=== PATIENT | male | born 1965 | race Two or more races ===

== ENCOUNTER 2023-10-18 14:25 | Inpatient (IN) | payer OTHER ==
[~2023-10-18] VITALS: Ht 170.2 cm; Wt 89.6 kg
[2023-10-18] MEDS ORDERED: AMLO-258 PO (14:33)
[2023-10-18] MEDS ORDERED: ATOR20TA65 PO (14:50)
[2023-10-18] MEDS: ONDANSETRON HCL 4 MG/2 ML VIAL IVP ONE ×3 (14:55→20:32)
[2023-10-18] MEDS: HYDROmorphone HCL 2 MG/ML SYRINGE IVP ONE (14:55)
[2023-10-18] MEDS: SODIUM CHLORIDE 0.9% 1,000 ML IV ONE ×3 (14:56→19:08)
[2023-10-18 15:06] LABS: BASOPHILS % (AUTO) 0.2 % (0.0-2.0); EOSINOPHILS % (AUTO) 0.2 % (1.0-6.0); HEMATOCRIT 43.8 % (41-53); HEMOGLOBIN 14.8 g/dL (13.5-17.5); LYMPHOCYTES # (AUTO) 0.9 K/uL (1.0-4.8); LYMPHOCYTES % (AUTO) 7.2 % (22.0-44.0); MEAN CORPUSCULAR HEMOGLOBIN 34.1 pg (26.0-34.0); MEAN CORPUSCULAR HGB CONC 33.7 G/dL (31.0-37.0); MEAN CORPUSCULAR VOLUME 101 fL (80-100); MONOCYTES # (AUTO) 0.8 K/uL (0.1-1.0); MONOCYTES % (AUTO) 6.5 % (2.0-9.0); NEUTROPHILS # (AUTO) 10.8 K/uL (1.8-7.7); PLATELET COUNT (AUTO) 199 K/uL (150-450); RED BLOOD CELL COUNT(AUTO) 4.33 MIL/uL (4.50-5.90); RED CELL DISTRIBUTION WIDTH 13.5 % (11.5-14.5); WHITE BLOOD COUNT (AUTO) 12.5 K/uL (4.5-11.0)
[2023-10-18 15:07] LABS: NEUTROPHILS % (AUTO) 85.9 % (40.0-70.0)
[2023-10-18 15:12] LABS: ANION GAP 7 mmol/L (8-16); CALCIUM, TOTAL 9.5 mg/dL (8.8-10.5); CARBON DIOXIDE 28 mmol/L (22-29); CHLORIDE 105 mmol/L (98-107); CREATININE 1.25 mg/dL (0.60-1.30); GLOMERULAR FILTR. RATE CALC 60 mL/min (>60); GLUCOSE,RANDOM 115 mg/dL (70-110); POTASSIUM 4.1 mmol/L (3.5-5.1); SODIUM SERUM 140 mmol/L (136-145); UREA NITROGEN, BLOOD 22 mg/dL (7-18)
[2023-10-18 15:20] LABS: ALCOHOL, BLOOD (SERUM) < 3 mg/dL (0-10)
[2023-10-18] MEDS ORDERED: SODIUM CHLORIDE 0.9% 100 ML ONE (15:25)
[2023-10-18] MEDS ORDERED: IOHEXOL 350 MG/ML 100 ML VIAL ONE (15:25)
[2023-10-18] MEDS ORDERED: 0.9% SODIUM CHLORIDE 10 ML SYRINGE IVP ONE (15:26)
[2023-10-18 15:49] LABS: PLATELET MORPHOLOGY COMMENT LARGE PLTS PRESENT; RBC MORPHOLOGY COMMENT NORMAL RBC MORPH
[2023-10-18] MEDS ORDERED: OxyCODONE HCL/ACETAMINOPHEN 5-325 MG TABLET PO PRN (16:30)
[2023-10-18] MEDS ORDERED: MORPHINE SULFATE 2 MG/ML SYRINGE IVP PRN (16:30)
[2023-10-18] MEDS: MAGNESIUM HYDROXIDE SUSPENSION 30 ML UDCUP PO PRN (16:45)
[2023-10-18] MEDS: DOCUSATE SODIUM 100 MG CAPSULE PO SCH (20:15)
[2023-10-18] MEDS: LORazepam 2 MG/ML VIAL IVP ONE (20:32)
[2023-10-18 23:27] VITALS: BP 128/75; PULSE 63; RESP 19; TEMP 97.7
[2023-10-19 04:52] VITALS: BP 124/80; PULSE 59; RESP 19; TEMP 97.8
[2023-10-19 06:51] LABS: BASOPHILS % (AUTO) 0.5 % (0.0-2.0); EOSINOPHILS % (AUTO) 0.5 % (1.0-6.0); HEMOGLOBIN 13.9 g/dL (13.5-17.5); LYMPHOCYTES # (AUTO) 1.3 K/uL (1.0-4.8); LYMPHOCYTES % (AUTO) 15.2 % (22.0-44.0); MEAN CORPUSCULAR HEMOGLOBIN 34.6 pg (26.0-34.0); MEAN CORPUSCULAR HGB CONC 33.9 G/dL (31.0-37.0); MEAN CORPUSCULAR VOLUME 102 fL (80-100); MONOCYTES # (AUTO) 0.9 K/uL (0.1-1.0); MONOCYTES % (AUTO) 10.5 % (2.0-9.0); NEUTROPHILS # (AUTO) 6.1 K/uL (1.8-7.7); NEUTROPHILS % (AUTO) 73.3 % (40.0-70.0); PLATELET COUNT (AUTO) 186 K/uL (150-450); RED BLOOD CELL COUNT(AUTO) 4.02 MIL/uL (4.50-5.90); RED CELL DISTRIBUTION WIDTH 13.9 % (11.5-14.5); WHITE BLOOD COUNT (AUTO) 8.3 K/uL (4.5-11.0)
[2023-10-19 08:02] VITALS: BP 131/82; PULSE 64; RESP 18; TEMP 98
[2023-10-19] MEDS: FAMOTIDINE 20 MG TABLET PO SCH (08:34)
[2023-10-19] MEDS: IBUPROFEN 400 MG TABLET PO ONE (10:26)
[2023-10-19] MEDS ORDERED: PNEUMOCOCCAL VACCINE POLYVALENT 0.5 ML SYRINGE [PPSV23] IM. ONE (13:15)
== END 2023-10-19 13:00 | disposition home or self-care (01) | DRG 89 ==
LOC: EMS 14:40 → EDH 16:26 → 4E 22:27
PROVIDERS: ADMIT Internal Medicine; ATTEND Internal Medicine
DX: S06.0X0A Concussion without loss of consciousness, initial encounter (principal); M62.82 Rhabdomyolysis; S40.021A Contusion of right upper arm, initial encounter; S20.219A Contusion of unspecified front wall of thorax, initial encounter; S30.0XXA Contusion of lower back and pelvis, initial encounter; S00.03XA Contusion of scalp, initial encounter; R26.2 Difficulty in walking, not elsewhere classified; I10 Essential (primary) hypertension; W11.XXXA Fall on and from ladder, initial encounter; Z88.6 Allergy status to analgesic agent; Z88.8 Allergy status to other drugs, medicaments and biological substances; Z79.899 Other long term (current) drug therapy; Y93.89 Activity, other specified; Y92.89 Other specified places as the place of occurrence of the external cause; Y99.8 Other external cause status
CPT/HCPCS: 70450; 71045; 71260; 72125; 72170; 72193; 74160; 80048; 82550; 85025; 99285; G0378; G0480; J1170; J2060; J2405; J7030; J7050; 36415-L1; 36415-TC